=== PATIENT | female | born 1970 | race Asian ===

== ENCOUNTER 2017-01-19 11:10 | Emergency (ER) | payer BC ==
--- NOTE | 2017-01-19 11:19 | PDOC ---
History of Present Illness - General Chief Complaint: Pain, Acute Stated Complaint: RLQ ABD PAIN Time Seen by Provider: 01/19/17 11:18 - History of Present Illness Initial Comments: 01/19/17 11:39 Chief complaint: Abdominal pain History of present illness: Patient complains of right lower quadrant and right pelvic pain for approximately 8 days, worse last night, but improved this morning. There has been associated constipation, but she had a bowel movement this morning and is passing gas. No nausea or vomiting. Normal appetite. No hematemesis, melena, bloody stool. Review of systems: Last menses ended yesterday, which was normal. No missed menses. No vaginal discharge. Its been approximately 3 years since she is had a CONSTRUCTION ESTIMATOR exam. No dysuria or other urinary tract symptoms. No fever/chills, sore throat, URI symptoms, cough, chest pain, shortness of breath, visual or focal neurologic symptoms, unsteadiness of gait. Past medical history: Healthy female, 3 sections with 3 living children , told of elevated cholesterol in the past but on no medication. Otherwise negative Social history: , stable home and family, no tobacco alcohol or nonprescription drugs. Fully active and without disability Family history: Reviewed and noncontributory. No early coronary artery disease, GI, or CONSTRUCTION ESTIMATOR disease, diabetes or cancer Physical exam: Alert and oriented well-developed well-nourished no acute distress cheerful and cooperative Afebrile, vital signs normal No pallor or icterus. PERRLA, ENT clear Neck supple without bruit mass or nodes Lungs clear to P&A full breath sounds throughout bilaterally no wheezes rales or rhonchi CV S1 and S2 normal without murmur rub or gallop pulses full and symmetric no JVD or edema no bruits Abdomen nondistended. Normal bowel sounds. Soft without mass or organomegaly. No CVAT. There is mild tenderness to deep palpation low in the pelvis on the right side. No guarding or rebound in the patient does not appear to be uncomfortable, either lying or standing, or with palpation. Extremities no CCE Skin clear, no rash, adequate turgor and wet mucous membranes Neurological intact gait stable and unimpaired Impression: Pelvic pain of approximately one week's duration, at the time of menses. Physical exam only mild tenderness with no guarding or rebound. Possible ovarian cyst, less likely appendicitis, UTI, ectopic . Plan: Urinalysis, test, CBC and chemistries. Further evaluation and treatment depending on results. Past History - Past Medical History Allergies/Adverse Reactions: Allergies Allergy/AdvReac Type Severity Reaction Status Date / Time No Known Allergies Allergy Verified 01/19/17 12:03 Home Medications: Ambulatory Orders NK [No Known Home Medication] 01/19/17 Medical Decision Making - Medical Decision Making 01/19/17 12:38 Urinalysis is clear and test is negative. The patient refuses to wait for further evaluation, including blood work, ultrasound, or CAT scan. 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 Despite warning that she could have a serious abdominal or pelvic condition such as appendicitis or ovarian torsion, she insists on signing out AMA. She states that if the pain gets worse, she will return for further evaluation at another time. Fully ambulatory and in no apparent pain or other distress upon leaving AMA. *DC/Admit/Observation/Transfer Diagnosis at time of Disposition: Abdominal pain Qualifiers: Abdominal location: lower abdomen, unspecified Qualified Code(s): R10.30 - Lower abdominal pain, unspecified - Discharge Dispostion Disposition: AGAINST MEDICAL ADVICE
[2017-01-19 11:51] VITALS: BP 122/71; PULSE 66; TEMP 98.2; BMI 22.6
[2017-01-19 11:54] LABS: URINE APPEARANCE Clear; URINE BILIRUBIN Negative (NEGATIVE); URINE BLOOD Negative (NEGATIVE); URINE GLUCOSE (UA) Negative (NEGATIVE); URINE KETONE Negative (NEGATIVE); URINE LEUK ESTERASE Negative (NEGATIVE); URINE NITRITE Negative (NEGATIVE); URINE PROTEIN Negative (NEGATIVE); URINE UROBILINOGEN 0.2 (0.2-1.0)
[2017-01-19 11:55] LABS: URINE COLOR YELLOW
== END 2017-01-19 12:10 | disposition left against medical advice (07) ==
LOC: FER 11:10 → EDBD 11:10 → FER 12:10
DX: R10.30 Lower abdominal pain, unspecified (principal)
CPT/HCPCS: 81003; 84703; 99282-25

== ENCOUNTER 2017-01-20 09:30 | Emergency (ER) | payer BC ==
--- NOTE | 2017-01-20 09:35 | PDOC ---
History of Present Illness - General Chief Complaint: Pain Stated Complaint: RIGHT LOWER ABD/FLANK PAIN Time Seen by Provider: 01/20/17 09:35 - History of Present Illness Initial Comments: 01/20/17 10:02 Ms. Ramírez is a 46 yo female with a pmh of constipation who represents to the emergency room with complaints of right lower quadrant abdominal pain for the past 9 days. 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 She reports a standing problem of constipation but says that she had a bowel movement yesterday and has been passing gas as normal. The patient denies chest pain, shortness of breath, headache and dizziness. Denies fever, chills, nausea, vomit, and diarrhea. Denies dysuria, frequency, urgency and hematuria. Allergies: NKDA Past surgical history: c-sections (3) Past History - Past Medical History Allergies/Adverse Reactions: Allergies Allergy/AdvReac Type Severity Reaction Status Date / Time No Known Allergies Allergy Verified 01/20/17 09:40 Home Medications: Ambulatory Orders NK [No Known Home Medication] 01/19/17 - Suicide/Smoking/Psychosocial Hx Smoking History: Never smoked Have you smoked in the past 12 months: No Hx Alcohol Use: No Drug/Substance Use Hx: No Substance Use Type: None Review of Systems - Review of Systems Comments:: 01/20/17 09:52 GENERAL/CONSTITUTIONAL: No fever or chills. No weakness. HEAD, EYES, EARS, NOSE AND THROAT: No change in vision. No ear pain or discharge. No sore throat. CARDIOVASCULAR: No chest pain or shortness of breath RESPIRATORY: No cough, wheezing, or hemoptysis. GASTROINTESTINAL: +Constipated at baseline but had a BM yesterday. Reports RLQ pain increased with movement. No nausea, vomiting, diarrhea GENITOURINARY: No dysuria, frequency, or change in urination. MUSCULOSKELETAL: No joint or muscle swelling or pain. No neck or back pain. SKIN: No rash NEUROLOGIC: No headache, vertigo, loss of consciousness, or change in strength/ sensation. ENDOCRINE: No increased thirst. No abnormal weight change HEMATOLOGIC/LYMPHATIC: No anemia, easy bleeding, or history of blood clots. ALLERGIC/IMMUNOLOGIC: No hives or skin allergy. *Physical Exam - Physical Exam Comments: 01/20/17 10:01 GENERAL: Awake, alert, and fully oriented, in no acute distress HEAD: No signs of trauma, normocephalic, atraumatic EYES: PERRLA, EOMI, sclera anicteric, conjunctiva clear ENT: Auricles normal inspection, hearing grossly normal, nares patent, oropharynx clear without exudates. Moist mucosa NECK: Normal ROM, supple, no lymphadenopathy, JVD, or masses LUNGS: No distress, speaks full sentences, clear to auscultation bilaterally HEART: Regular rate and rhythm, normal S1 and S2, no murmurs, rubs or gallops, peripheral pulses normal and equal bilaterally. ABDOMEN: +Tender to deep palpation in extreme right lower quadrant, Positive straight leg raise test. Soft, normoactive bowel sounds. No guarding, no rebound. No masses EXTREMITIES: Normal inspection, Normal range of motion, no edema. No clubbing or cyanosis. NEUROLOGICAL: Cranial nerves II through XII grossly intact. Normal speech, normal gait, no focal sensorimotor deficits SKIN: Warm, Dry, normal turgor, no rashes or lesions noted. ED Treatment Course - LABORATORY CBC & Chemistry Diagram: 01/20/17 09:55 01/20/17 10:25 Medical Decision Making - Medical Decision Making 01/20/17 11:19 Patient presents with 9 day history of reported fluctuating pain at right lower quadrant with movement; can think of no trauma or strain experienced in lifting. Exam negative for rebound or tenderness to palpation with anything but very deep palpation over site. Positive R straight leg test. Labs as below all grossly wnl. Pain seems to be muscular in origin; transvaginal ultrasound ordered to r/o ovarian cyst or torsion. US showed 1.3cm cyst on R ovary and 1cm Left ovarian follicle with additional notation of several cervical nabothian cysts. Patient given copy of report and advised to f/u with PCP for further evaluation, and to rest and treat any remaining pain with OTC medications if able. Patient also verbalized understanding to follow-up with PCP and represent if pain unable to be controlled with OTC's. Laboratory Results - last 24 hr 01/20/17 01/20/17 01/20/17 09:55 09:55 10:25 WBC 4.1 RBC 4.16 Hgb 12.3 Hct 37.1 MCV 89.3 MCH 29.6 MCHC 33.1 RDW 12.5 Plt Count 238 MPV 8.6 Neutrophils % 39.8 L Lymphocytes % 48.1 H Monocytes % 5.8 Eosinophils % 3.5 Basophils % 2.8 H Sodium Cancelled 138 Potassium Cancelled 3.5 Chloride Cancelled 104 Carbon Dioxide Cancelled 27 Anion Gap Cancelled 7 L BUN Cancelled 8 Creatinine Cancelled 0.5 L Creat Clearance w eGFR Cancelled > 60 Random Glucose Cancelled 92 Calcium Cancelled 9.1 Total Bilirubin Cancelled 0.6 AST Cancelled 17 ALT Cancelled 13 Alkaline Phosphatase Cancelled 24 L Total Protein Cancelled 6.4 Albumin Cancelled 4.5 *DC/Admit/Observation/Transfer Diagnosis at time of Disposition: Cyst of ovary Qualifiers: Laterality: unspecified laterality Qualified Code(s): N83.209 - Unspecified ovarian cyst, unspecified side; N83.209 - Unspecified ovarian cyst, unspecified side - Discharge Dispostion Disposition: HOME Condition at time of disposition: Good - Referrals Referrals: Kaela Day [Primary Care Provider] - - Patient Instructions Printed Discharge Instructions: DI for Ovarian Cyst
[2017-01-20 09:41] VITALS: BP 121/41; PULSE 68; TEMP 97.7; BMI 22.6
--- NOTE | 2017-01-20 09:42 | PDOC ---
Attending Attestation - Resident Resident Name: Suraj Reynoso - ED Attending Attestation I have performed the following: I have examined & evaluated the patient, The case was reviewed & discussed with the resident, I agree w/resident's findings & plan, Exceptions are as noted - HPI HPI: 01/20/17 10:08 46y F hx of constipation presents with complaint of RLQ pain for the past 9 days , it is intermittent, lasting for several minutes at a time efore resolving, she rates it about 6/10 when she has it. she was seen in the ED yesterday for the same but had a imited exam before needing to leave. Pt endorses that Pt denies any f/c, n/v, diarrhea, urinary symptmos, pain does seem positional and is worse when she is ambulating/moving around and when she lifts her child. pt has not taken any motrin/tylenol for it. On exam the pt appears well, in no distress, on exam she has no consistent tenderness on palpation, but states she sometimes has some mild tenderness to the R adnexa. pain also seemed a bit worse when she turned her torso to the right and when she lifted her right leg. vitals reveal normal vital signs i suspect this may be secondary to muslce strain labs are unremarkable w/o any leukocytosis UA from yesterday was neg for blood and will ck TVUS to r/o ovarian cyst / torsion pt declines pain meds currently. 01/20/17 14:33 labs reviewed TVUS neg for acute pathology and torsion pt feeling improved no pain on reassessemtn of abdomen no pain at rest suspect pain may be msk in nature will dc with suportive care. will dc the pt with pmd fu return precautions were discussed - Physicial Exam PE: 01/20/17 11:55 see above - Medical Decision Making 01/20/17 11:55 see above
[2017-01-20 10:16] LABS: BASOPHIL 2.8 % (0-2.0); EOSINOPHIL 3.5 % (0-4.5); MCH 29.6 pg (25.7-33.7); MCHC 33.1 g/dl (32.0-36.0); MEAN CELL VOLUME 89.3 fl (80-96); MEAN PLT VOLUME 8.6 fl (7.5-11.1); NEUTROPHILS 39.8 % (42.8-82.8); PLATELET COUNT 238 K/MM3 (134-434); RDW 12.5 % (11.6-15.6); WHITE BLOOD COUNT 4.1 K/mm3 (4.0-10.8)
[2017-01-20 11:02] LABS: ALBUMIN 4.5 g/dl (3.5-5.0); ALK PHOS 24 U/L (32-92); ANION GAP 7 (8-16); BILIRUBIN,TOTAL 0.6 mg/dl (0.2-1.0); CALCIUM 9.1 mg/dl (8.4-10.2); CO2 27 mmol/L (22-28); CREATININE 0.5 mg/dl (0.6-1.3); GLUCOSE,RANDOM 92 mg/dl (74-106); SGOT/AST 17 U/L (10-42); SGPT/ALT 13 U/L (10-40); TOT PROT 6.4 g/dl (6.4-8.3)
== END 2017-01-20 14:28 | disposition home or self-care (01) ==
LOC: FER 09:30
DX: N83.209 Unspecified ovarian cyst, unspecified side (principal)
CPT/HCPCS: 36415; 76830-TC; 76856-TC; 80053; 85025; 99283-25

== ENCOUNTER 2024-01-19 10:05 | Emergency (ER) | payer BC, OTHER ==
[2024-01-19 10:12] VITALS: BP 115/52; PULSE 72; RESP 18; TEMP 97.7; BMI 23.0
[2024-01-19] MEDS ORDERED: MECLIZINE HCL 25 MG TABLET (FP) ONE (12:33)
[2024-01-19] MEDS: SODIUM CHLORIDE 0.9% 1000 ML INFUS.BAG IV ONE (12:38)
[2024-01-19] MEDS: MECLIZINE HCL 25 MG TABLET (FP) PO ONE (12:38)
[2024-01-19 12:56] LABS: INR 1.01 (0.83-1.09); PROTHROMBIN TIME (PATIENT) 11.5 SEC (9.7-13.0)
[2024-01-19 13:17] LABS: HEMOGLOBIN 12.1 G/dL (10.7-15.3); MCH 30.1 pg (25.7-33.7); MCHC 32.7 g/dl (32.0-36.0); MEAN CELL VOLUME 92.1 fl (80-96); MEAN PLT VOLUME 8.2 fl (7.5-11.1); RBC 4.02 10^6/uL (3.60-5.2); RDW 13.8 % (11.6-15.6); WHITE BLOOD COUNT 5.6 10^3/uL (4.0-10.8)
[2024-01-19 13:19] LABS: ALBUMIN 4.5 g/dl (3.4-5.0); BILIRUBIN,TOTAL 0.6 mg/dl (0.2-1); CALCIUM 9.7 mg/dl (8.5-10.1); CREATININE 0.5 mg/dl (0.6-1.3); TOT PROT 6.3 g/dl (6.4-8.2)
[2024-01-19 14:29] LABS: PLATELET ESTIMATE ADEQUATE
== END 2024-01-19 14:13 | disposition home or self-care (01) ==
LOC: FER 10:05
DX: R42 Dizziness and giddiness (principal); R11.0 Nausea; R26.81 Unsteadiness on feet
CPT/HCPCS: 36415; 70450-TC; 71046-TC-FY; 80053; 81003; 81015; 84484; 84703; 85027; 85610; 93005; 99285-25